=== PATIENT | female | born 1990 | race American Indian/Alaskan Native ===

== ENCOUNTER 2021-05-20 21:46 | Observation (INO) | payer OTHER ==
[2021-05-20] MEDS ORDERED: TERBUTALINE 1 MG/1 ML INJ ONE (22:30)
[2021-05-20] MEDS ORDERED: LACTATED RINGERS 1,000 ML ONE (22:30)
[2021-05-20] MEDS ORDERED: TERBUTALINE 1 MG/1 ML INJ SUB-Q ONE (22:42)
[2021-05-20] MEDS ORDERED: BETAMET ACET/BETAMET NA PH 6 MG/ML INJ 5 ML MDV IM ONE (23:06)
[2021-05-20] MEDS: BETAMET ACET/BETAMET NA PH 6 MG/ML INJ 5 ML MDV IM SCH (23:09)
[2021-05-20] MEDS ORDERED: LACTATED RINGERS 500 ML IV ONE (23:26)
[2021-05-20] MEDS ORDERED: MAGNESIUM SULFATE 40GM/1000ML 40 GM/1,000 ML BAG IV ONE (23:38)
--- NOTE | 2021-05-20 23:42 | Ultrasound Report ---
ULTRASOUND OBSTETRIC INDICATION / CLINICAL INFORMATION: wellbeing. Clinical Gestational Age (GA) in weeks, days: 25, 2 TECHNIQUE: Transabdominal. COMPARISON: None available. FINDINGS: Single intrauterine . Biparietal Diameter = 6.1 cm = 24, 4 weeks, days Head Circumference = 23.3 cm = 25, 2 weeks, days Abdominal Circumference = 20.4 cm = 25, 0 weeks, days Femur Length = 4.5 cm = 24, 5 weeks, days Average Ultrasound Age (AUA) = 24, 6 weeks, days Heart Rate: 143 beats per minute. Estimated Weight in grams (if calculated): 751 Estimated Weight Growth Percentile (if calculated): 25% Position: breech. Cervix: closed. Length in cm (if measured): 3.0 Placenta: posterior and free of the os. Amniotic Fluid Volume: normal Amniotic Fluid Index (MARIANELA) in cm (if calculated): 19.1. Maternal Adnexa: No significant abnormality. Uterus: Multiple uterine fibroids with the largest measuring 9.6 cm on the right. IMPRESSION: 1. Single, living intrauterine with estimated sonographic age of 25, 2 weeks, days. 2. No acute sonographic abnormality. 3. Multiple uterine fibroids. Signer Name: Chato Mcnair MD Signed: 05/20/2021 11:38 PM Workstation Name: [id number]
--- NOTE | 2021-05-20 23:45 | History and Physical Report ---
History of Present Illness Date of examination: 05/20/21 Date of admission: 05/20/21 Chief complaint: sent from clinic for eval with contractions in office today History of present illness: at 25.2wks by LMP c/w U/S and care at [facility]. Triage nurse called me from home stating pt with FHR in the 80-90's for which she was certain and pt was romy per nurse report. Brethine x1 dose ordered by me and u/s to verify fetus presentation, wt and well being. Steroids 1st dose ordered as well and walk in labs until prenatals available. When I arrived, I obtained history from patient. Pt here with report of being sent from clinic by SHANIQUE Gar earlier today for evaluation and pt chose to go and get her children situated prior to coming here. Pt admits to movement, denies leakage of fluid or vag bleeding, denies sexual intercourse, admits to feeling ctx and denies headache. When questioned, pt states that she and her family and moving to a different place of residence and she has been painting the [place] of her new residence. Past History Past Surgical History: appendectomy [employer] History: herpes, other (uterine fibroids this ) Family/Genetic History: none Social history: no significant social history - Obstetrical History Expected Date of Delivery: 08/31/21 Actual Gestation: 25 Week(s) 3 Day(s) : 3 Para: 2 Number of Living Children: 2 Medications and Allergies Allergies Allergy/AdvReac Type Severity Reaction Status Date / Time No Known Allergies Allergy Verified 08/15/13 08:43 Home Medications Medication Instructions Recorded Confirmed Last Taken Type Ibuprofen [Motrin] 800 mg PO TID PRN #21 tablet 09/26/13 Unknown Rx Active Meds: Active Medications Betamethasone Acet/Betameth SodPhos (Betamet Acet/Betamet Na Ph 6 Mg/Ml Inj 5 Ml Mdv) 12 mg IM Q24H PURA Stop: 05/21/21 23:18 Last Admin: 05/20/21 23:09 Dose: 12 mg Documented by: Lactated Ringer's (Lactated Ringers) 500 mls @ 999 mls/hr IV BOLUS ONE Stop: 05/20/21 23:56 Magnesium Sulfate (Magnesium Sulfate 40gm/1000ml) 40 gm in 1,000 mls @ 50 mls/hr IV ONCE ONE Stop: 05/21/21 19:37 Review of Systems All systems: negative (feeling contractions) - Vital Signs Vital signs: Vital Signs Pulse BP 96 H 137/90 05/20/21 22:25 05/20/21 22:25 Temp Pulse Resp BP Pulse Ox 96 H 137/90 97 05/20/21 23:37 05/20/21 22:25 05/20/21 23:37 - Physical Exam Breasts: Positive: deferred Cardiovascular: Regular rate Lungs: Positive: Normal air movement Abdomen: Positive: normal appearance Vulva: both: normal (no lesions seen) Uterus: Positive: enlarged (irregularly shaped enlarged uterus with fibroids) Anus/Rectum: Positive: normal perianal skin - Obstetrical FHR: other (Initially per nurse report fetus was in the 80's and U/S at bedside by radiology confirms 140's) Uterine Contraction Monitor Mode: External Cervical Dilatation: 0 (unchanged from clinic exam by CNMW) Cervical Effacement Percentage: 0 station: -3 Uterine Contraction Pattern: Irregular Results Result Diagrams: 05/20/21 22:40 All other labs normal. Assessment and Plan with contractions, multiple uterine fibroids largest 9.6cm on the right side with reassuring tracing after u/sound done. 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 Admit to antepartum floor, tocolysis and neuroprotection with mag sulfate, betamethasone 2. U/S today with EGA 24.6wks, fetus breech, wt 751g in the 25th percentile, posterior placenta, MARIANELA 19 3. Pt told if delivery imminent, emergent section would be recommended 4. NICU consult if delivery imminent 5. Consult [facility] in am Plan of care discussed; All questions encouraged and answered.
[2021-05-20] MEDS ORDERED: MAGNESIUM SULFATE 0 GM/0 ML BAG IV ONE (23:50)
[2021-05-20 23:55] LABS: Basophils # (Auto) 0.1 K/mm3 (0.0-0.1); Basophils % (Auto) 0.8 % (0.0-1.8); Eosinophils # (Auto) 0.2 K/mm3 (0.0-0.4); Eosinophils % (Auto) 1.5 % (0.0-4.3); Hematocrit 40.7 % (30.3-42.9); Hemoglobin 13.7 gm/dl (10.1-14.3); Lymphocytes # (Auto) 1.5 K/mm3 (1.2-5.4); Lymphocytes % (Auto) 15.3 % (13.4-35.0); Mean Corpuscular HGB Conc 34 % (30-34); Mean Corpuscular Volume 85 fl (79-97); Monocytes # (Auto) 0.7 K/mm3 (0.0-0.8); Monocytes % (Auto) 6.5 % (0.0-7.3); Platelet Count 176 K/mm3 (140-440); Red Cell Distribution Width 15.2 % (13.2-15.2)
[2021-05-21] MEDS ORDERED: LACTATED RINGERS 1,000 ML ONE ×2 (00:09→21:03)
[2021-05-21 00:56] LABS: Bilirubin,Urine NEG (Negative); Blood,Urine NEG (Negative); Color,Urine Straw (Yellow); Protein,Urine <15 mg/dL mg/dL (Negative); RBC,Urine < 1.0 /HPF (0.0-6.0); Urobilinogen,Urine < 2.0 mg/dL (<2.0); WBC,Urine < 1.0 /HPF (0.0-6.0)
[2021-05-21 01:03] LABS: Amphetamine Screen,Urine PRESUMPTIVE NEGATIVE; Benzodiazepines Screen,Urine PRESUMPTIVE NEGATIVE; Cannabinoid Screen,Urine PRESUMPTIVE NEGATIVE; Cocaine Screen,Urine PRESUMPTIVE NEGATIVE; Methadone Screen,Urine PRESUMPTIVE NEGATIVE; Opiate Screen,Urine PRESUMPTIVE NEGATIVE
[2021-05-21 02:53] LABS: Alanine Aminotransferase 8 units/L (7-56); Albumin 3.6 g/dL (3.9-5); Blood Urea Nitrogen 5 mg/dL (7-17); Hemolysis Index 2; Uric Acid 3.2 mg/dL (3.5-7.6)
[2021-05-21 02:58] LABS: BUN/Creatinine Ratio 17
[2021-05-21] MEDS ORDERED: ACETAMINOPHEN W/CODEINE 300-30 MG TAB PO PRN (03:41)
--- NOTE | 2021-05-21 03:41 | Event Note ---
Date: 05/21/21 pt resting comfortable with mag sulfate and not complaining of pain. pt refused the external contraction monitor per nurse report and FHR in the 150's tracing well. Urinary output good. Await [facility] consult later today.
[2021-05-21] MEDS ORDERED: LACTATED RINGERS 1,000 ML IV SCH (21:15)
[2021-05-21] MEDS ORDERED: MAGNESIUM SULFATE 40GM/1000ML 40 GM/1,000 ML BAG IV ONE (22:22)
[2021-05-21] MEDS: BETAMET ACET/BETAMET NA PH 6 MG/ML INJ 5 ML MDV IM SCH (23:10)
[2021-05-22 07:15] VITALS: BP 107/70
--- NOTE | 2021-05-22 09:23 | Discharge Summary ---
Providers - Providers Date of Admission: 05/20/21 23:26 Date of discharge: 05/20/21 Attending physician: DELIO SANDHU 05/20/21 23:26 Consult to Physician [CONS] Routine Comment: Consulting Provider: [facility] [place] Physician Instructions: Reason For Exam: labor, multiple fibroids Primary care physician: DELIO SANDHU Hospitalization Reason for admission: IUP - Discharge diagnosis: other (25 wks iup, pre-term labor) Hospital course: pt stopped u/cs on mag sulfate. she had steroids for lung maturity of baby. pt ready for d/c Condition at discharge: Good Disposition: DC-01 TO HOME OR SELFCARE - Discharge Diagnoses (1) 25 to 26 weeks gestation of Status: Acute (2) Fibroids Status: Acute (3) labor Status: Acute Qualifiers: labor delivery status: without delivery Plan - Provider Discharge Summary Activity: routine, no sex for 6 weeks, no heavy lifting 4 weeks, no strenuous exercise Diet: routine Instructions: routine Additional instructions: [] Smoking cessation referral if applicable(refer to patient education folder for contact #) [] Refer to [facility] Booklet Call your doctor immediately for: * Fever > 100.5 * Heavy vaginal bleeding ( >1 pad per hour) * Severe persistent headache * Shortness of breath * Reddened, hot, painful area to leg or breast * Drainage or odor from incision. * Keep incision clean and dry at all times and follow doctor's instructions regarding bathing/showering - Follow up plan Follow up: DELIO SANDHU MD [Primary Care Provider] - 7 Days
== END 2021-05-22 12:35 | disposition home or self-care (01) ==
LOC: TRG 21:46 → APU 21:55 → TRG 23:26 → LD 23:26
PROVIDERS: ADMIT Obstetrics & Gynecology; ATTEND Obstetrics & Gynecology
DX: O60.02 Preterm labor without delivery, second trimester (principal); D25.9 Leiomyoma of uterus, unspecified; Z79.899 Other long term (current) drug therapy; Z3A.25 25 weeks gestation of pregnancy; Z90.49 Acquired absence of other specified parts of digestive tract; Z98.890 Other specified postprocedural states
CPT/HCPCS: 36415; 76816; 80053; 80307; 81001; 83615; 83735; 84550; 85025; 86850; 86900; 86901; 87086; 96365; 96366; 96372; G0378; J0702; J3105; J3475; J7120; 76815

== ENCOUNTER 2021-09-07 19:39 | Inpatient (IN) | payer OTHER ==
[2021-09-07] MEDS ORDERED: LACTATED RINGERS 1,000 ML ONE (20:49)
[2021-09-07] MEDS ORDERED: CARBOPROST TROMETHAMINE 250 MCG/1 ML INJ IM PRN (22:16)
[2021-09-07] MEDS ORDERED: AMPICILLIN/NS 2 GM/100 ML 2 GM/100 ML BAG IV ONE (22:16)
[2021-09-07] MEDS ORDERED: DINOPROSTONE 10 MG VAG SUPP VG ONE (22:16)
[2021-09-07] MEDS ORDERED: miSOPROStol 200 MCG TAB PR PRN (22:16)
[2021-09-07] MEDS ORDERED: ePHEDrine SULFATE 50 MG/1 ML INJ IV PRN (22:16)
[2021-09-07] MEDS ORDERED: TERBUTALINE 1 MG/1 ML INJ SUB-Q PRN (22:16)
[2021-09-07] MEDS ORDERED: OXYTOCIN 10 UNIT/1 ML INJ IM PRN (22:16)
[2021-09-07] MEDS ORDERED: MINERAL OIL 30 ML ORAL LIQD PO PRN (22:16)
[2021-09-07] MEDS ORDERED: ACETAMINOPHEN 325 MG TAB PO PRN (22:16)
[2021-09-07] MEDS ORDERED: LOPERAMIDE 2 MG CAP PO PRN (22:16)
[2021-09-07] MEDS ORDERED: LIDOCAINE (2%) 20 MG/1 ML VIAL 20 ML MDV INFILTRATI ONE (22:16)
[2021-09-07] MEDS ORDERED: BUTORPHANOL 2 MG/1 ML INJ IV PRN ×2 (22:16)
[2021-09-07] MEDS ORDERED: METHYLERGONOVINE MALEATE 0.2 MG/ML VIAL IM PRN (22:16)
--- NOTE | 2021-09-07 22:16 | History and Physical Report ---
History of Present Illness Date of examination: 09/07/21 Date of admission: 09/07/21 19:39 Chief complaint: "I"m here for an induction" History of present illness: 31 y/o presents @ 41 wks for an IOL r/t postdates. Pt denies VB or LOF and admits to adq . Pt initiated her pnc @ [facility] @ 13 1/ wks. She was admitted to [facility] for PTL and had steroids on 05/20 and 05/21, otherwise her preg has been uneventful. She is pos for GBS and has a hx of HSV II and multiple uterine fibroids. Pt reports a surgical hx of an appendectomy. Family hx is unremarkable. She was admitted to L&D for a cervidil IOL. Past History Past Medical History: other (appendicitis, fibroids) Past Surgical History: appendectomy Family/Genetic History: none Social history: no significant social history, full code - Obstetrical History Expected Date of Delivery: 08/31/21 Actual Gestation: 41 Week(s) 0 Day(s) : 3 Para: 2 Hx # Term Pregnancies: 2 Number of Living Children: 2 Medications and Allergies Allergies Allergy/AdvReac Type Severity Reaction Status Date / Time No Known Allergies Allergy Verified 08/15/13 08:43 Home Medications Medication Instructions Recorded Confirmed Last Taken Type Ibuprofen [Motrin 800 MG tab] 800 mg PO TID PRN #21 tablet 09/26/13 05/22/21 Unknown Rx Review of Systems All systems: negative Eyes: deferred Ears, nose, mouth and throat: deferred Breasts: normal Genitourinary: normal appearance Rectal Exam: deferred - Vital Signs Vital signs: Vital Signs Pulse BP 112 H 120/86 09/07/21 19:58 09/07/21 19:58 Temp Pulse Resp BP Pulse Ox 98.9 F 112 H 18 120/86 09/07/21 21:10 09/07/21 21:10 09/07/21 21:10 09/07/21 21:10 - Physical Exam Breasts: Positive: normal Abdomen: Positive: normal appearance, soft, normal bowel sounds, other (gravid) Genitourinary (Female): Positive: normal external genitalia, normal perenium Vulva: both: normal Vagina: Positive: normal moisture Uterus: Positive: enlarged, normal contour, other (gravid) Adnexa: both: normal Anus/Rectum: Positive: normal perianal skin Extremities: Positive: normal - Obstetrical FHR: auscultation normal, category 1 Uterine Contraction Monitor Mode: External Cervical Dilatation: 0 Cervical Effacement Percentage: 0 station: -4 Uterine Contraction Pattern: Irregular Uterine Tone Measurement Phase: Resting Uterine Contraction Intensity: Mild Results All other labs normal. Assessment and Plan A: IUP@ 41 wks postdates Multiple fibroids GBS pos HSV II P: Admit to L&D for a cervidil IOL GBS protocal Pain med/Epidural prn Continuous monitoring Anticipate
[2021-09-07] MEDS ORDERED: OXYTOCIN DRIP 30 UNITS/500 ML BAG IV SCH ×2 (23:00)
[2021-09-08 00:24] LABS: Hematocrit 41.9 % (30.3-42.9); Hemoglobin 13.9 gm/dl (10.1-14.3); Mean Corpuscular HGB Conc 33 % (30-34); Mean Corpuscular Volume 85 fl (79-97); Platelet Count 206 K/mm3 (140-440); Red Blood Count 4.92 M/mm3 (3.65-5.03); Red Cell Distribution Width 15.3 % (13.2-15.2)
[2021-09-08] MEDS ORDERED: AMPICILLIN/NS 1 GM/50 ML 1 GM/50 ML BAG IV SCH (03:00)
--- NOTE | 2021-09-08 10:02 | Progress Note ---
Assessment and Plan A: IUP @ 41 Weeks Category I Tracing Fibroid Uterus GBS Positive P: Remove Cervidil Sack Meal Provided Start Pitocin Augmentation Continue GBS Prophylaxis Subjective - Subjective Date of service: 09/08/21 Patient reports: movement normal, other (Requesting to eat) Objective - Vital Signs Vital Signs: Vital Signs - 12hr 09/08/21 09/08/21 09/08/21 03:57 04:02 04:07 Pulse Rate 92 H 112 H 104 H Blood Pressure O2 Sat by Pulse 98 97 97 Oximetry O2 Sat by Pulse Oximetry [ Bilateral Throughout] 09/08/21 09/08/21 09/08/21 04:12 04:17 04:22 Pulse Rate 88 93 H 98 H Blood Pressure O2 Sat by Pulse 96 96 96 Oximetry O2 Sat by Pulse Oximetry [ Bilateral Throughout] 09/08/21 09/08/21 09/08/21 04:27 04:32 04:37 Pulse Rate 90 95 H 99 H Blood Pressure O2 Sat by Pulse 96 95 96 Oximetry O2 Sat by Pulse Oximetry [ Bilateral Throughout] 09/08/21 09/08/21 09/08/21 04:42 04:47 04:52 Pulse Rate 88 91 H 92 H Blood Pressure O2 Sat by Pulse 96 97 97 Oximetry O2 Sat by Pulse Oximetry [ Bilateral Throughout] 09/08/21 09/08/21 09/08/21 04:57 05:02 05:07 Pulse Rate 94 H 90 95 H Blood Pressure O2 Sat by Pulse 97 97 96 Oximetry O2 Sat by Pulse Oximetry [ Bilateral Throughout] 09/08/21 09/08/21 09/08/21 05:12 05:17 05:22 Pulse Rate 94 H 90 91 H Blood Pressure O2 Sat by Pulse 96 97 96 Oximetry O2 Sat by Pulse Oximetry [ Bilateral Throughout] 09/08/21 09/08/21 09/08/21 05:27 05:32 05:37 Pulse Rate 91 H 85 94 H Blood Pressure O2 Sat by Pulse 96 94 96 Oximetry O2 Sat by Pulse Oximetry [ Bilateral Throughout] 09/08/21 09/08/21 09/08/21 05:42 05:47 05:52 Pulse Rate 95 H 88 103 H Blood Pressure O2 Sat by Pulse 97 96 97 Oximetry O2 Sat by Pulse Oximetry [ Bilateral Throughout] 09/08/21 09/08/21 09/08/21 05:57 05:58 06:02 Pulse Rate 84 84 87 Blood Pressure O2 Sat by Pulse 96 94 94 Oximetry O2 Sat by Pulse Oximetry [ Bilateral Throughout] 09/08/21 09/08/21 09/08/21 06:07 06:12 06:17 Pulse Rate 93 H 82 90 Blood Pressure O2 Sat by Pulse 95 97 96 Oximetry O2 Sat by Pulse Oximetry [ Bilateral Throughout] 09/08/21 09/08/21 09/08/21 06:22 06:27 07:34 Pulse Rate 80 82 92 H Blood Pressure 122/83 O2 Sat by Pulse 96 97 Oximetry O2 Sat by Pulse Oximetry [ Bilateral Throughout] 09/08/21 09/08/21 09/08/21 07:35 07:40 07:45 Pulse Rate 89 87 87 Blood Pressure O2 Sat by Pulse 96 97 97 Oximetry O2 Sat by Pulse 98 Oximetry [ Bilateral Throughout] 09/08/21 09/08/21 09/08/21 07:50 07:55 08:00 Pulse Rate 86 85 82 Blood Pressure O2 Sat by Pulse 97 97 97 Oximetry O2 Sat by Pulse Oximetry [ Bilateral Throughout] 09/08/21 09/08/21 09/08/21 08:05 08:10 08:15 Pulse Rate 85 82 94 H Blood Pressure O2 Sat by Pulse 96 97 96 Oximetry O2 Sat by Pulse Oximetry [ Bilateral Throughout] 09/08/21 09/08/21 09/08/21 08:20 08:25 08:30 Pulse Rate 82 89 88 Blood Pressure O2 Sat by Pulse 94 95 96 Oximetry O2 Sat by Pulse Oximetry [ Bilateral Throughout] 09/08/21 09/08/21 09/08/21 08:35 08:40 08:45 Pulse Rate 85 95 H 86 Blood Pressure O2 Sat by Pulse 97 97 97 Oximetry O2 Sat by Pulse Oximetry [ Bilateral Throughout] 09/08/21 09/08/21 09/08/21 09:39 09:45 09:50 Pulse Rate 96 H 93 H Blood Pressure O2 Sat by Pulse 100 98 98 Oximetry O2 Sat by Pulse Oximetry [ Bilateral Throughout] 09/08/21 09:55 Pulse Rate 86 Blood Pressure O2 Sat by Pulse 98 Oximetry O2 Sat by Pulse Oximetry [ Bilateral Throughout] - Exam Breasts: normal Cardiovascular: Regular rate Lungs: Normal air movement Abdomen: Present: normal appearance, soft Uterus: Present: normal, firm, fundal height above umbilicus FHR: category 1 (decreased varability) Uterine Contraction Monitor Mode: External Cervical Dilatation: 3 (Intact; Vtx) Cervical Effacement Percentage: 50 station: -3 Uterine Contraction Pattern: Irregular Uterine Tone Measurement Phase: Resting Uterine Contraction Intensity: Mild Extremities: normal - Labs Labs: Abnormal Labs 09/07/21 20:11 RDW 15.3 H Laboratory Results - last 24 hr 09/07/21 09/07/21 20:11 20:11 WBC 7.0 RBC 4.92 Hgb 13.9 Hct 41.9 MCV 85 MCH 28 MCHC 33 RDW 15.3 H Plt Count 206 Blood Type O POSITIVE Antibody Screen Negative
[2021-09-08] MEDS ORDERED: AMPICILLIN/NS 2 GM/100 ML 2 GM/100 ML BAG IV ONE (11:30)
[2021-09-08] MEDS: LACTATED RINGERS 1,000 ML IV SCH ×2 (13:52→19:58)
--- NOTE | 2021-09-08 14:39 | Progress Note ---
Subjective - Subjective Date of service: 09/08/21 Interval history: AROM clear fluid FHT Category 1 [place]: Q2-3 minutes Oxytocin at 8mu/min plan for continue AOL Maternal/ well being reassuring overall. Jesenia Jacob MD Patient reports: movement normal, other (Requesting to eat) Objective - Vital Signs Vital Signs: Vital Signs - 12hr 09/08/21 09/08/21 09/08/21 03:57 04:02 04:07 Pulse Rate 92 H 112 H 104 H Blood Pressure O2 Sat by Pulse 98 97 97 Oximetry O2 Sat by Pulse Oximetry [ Bilateral Throughout] 09/08/21 09/08/21 09/08/21 04:12 04:17 04:22 Pulse Rate 88 93 H 98 H Blood Pressure O2 Sat by Pulse 96 96 96 Oximetry O2 Sat by Pulse Oximetry [ Bilateral Throughout] 09/08/21 09/08/21 09/08/21 04:27 04:32 04:37 Pulse Rate 90 95 H 99 H Blood Pressure O2 Sat by Pulse 96 95 96 Oximetry O2 Sat by Pulse Oximetry [ Bilateral Throughout] 09/08/21 09/08/21 09/08/21 04:42 04:47 04:52 Pulse Rate 88 91 H 92 H Blood Pressure O2 Sat by Pulse 96 97 97 Oximetry O2 Sat by Pulse Oximetry [ Bilateral Throughout] 09/08/21 09/08/21 09/08/21 04:57 05:02 05:07 Pulse Rate 94 H 90 95 H Blood Pressure O2 Sat by Pulse 97 97 96 Oximetry O2 Sat by Pulse Oximetry [ Bilateral Throughout] 09/08/21 09/08/21 09/08/21 05:12 05:17 05:22 Pulse Rate 94 H 90 91 H Blood Pressure O2 Sat by Pulse 96 97 96 Oximetry O2 Sat by Pulse Oximetry [ Bilateral Throughout] 09/08/21 09/08/21 09/08/21 05:27 05:32 05:37 Pulse Rate 91 H 85 94 H Blood Pressure O2 Sat by Pulse 96 94 96 Oximetry O2 Sat by Pulse Oximetry [ Bilateral Throughout] 09/08/21 09/08/21 09/08/21 05:42 05:47 05:52 Pulse Rate 95 H 88 103 H Blood Pressure O2 Sat by Pulse 97 96 97 Oximetry O2 Sat by Pulse Oximetry [ Bilateral Throughout] 09/08/21 09/08/2109/08/21 05:57 05:58 06:02 Pulse Rate 84 84 87 Blood Pressure O2 Sat by Pulse 96 94 94 Oximetry O2 Sat by Pulse Oximetry [ Bilateral Throughout] 09/08/21 09/08/21 09/08/21 06:07 06:12 06:17 Pulse Rate 93 H 82 90 Blood Pressure O2 Sat by Pulse 95 97 96 Oximetry O2 Sat by Pulse Oximetry [ Bilateral Throughout] 09/08/21 09/08/21 09/08/21 06:22 06:27 07:34 Pulse Rate 80 82 92 H Blood Pressure 122/83 O2 Sat by Pulse 96 97 Oximetry O2 Sat by Pulse Oximetry [ Bilateral Throughout] 09/08/21 09/08/21 09/08/21 07:35 07:40 07:45 Pulse Rate 89 87 87 Blood Pressure O2 Sat by Pulse 96 97 97 Oximetry O2 Sat by Pulse 98 Oximetry [ Bilateral Throughout] 09/08/21 09/08/21 09/08/21 07:50 07:55 08:00 Pulse Rate 86 85 82 Blood Pressure O2 Sat by Pulse 97 97 97 Oximetry O2 Sat by Pulse Oximetry [ Bilateral Throughout] 09/08/21 09/08/21 09/08/21 08:05 08:10 08:15 Pulse Rate 85 82 94 H Blood Pressure O2 Sat by Pulse 96 97 96 Oximetry O2 Sat by Pulse Oximetry [ Bilateral Throughout] 09/08/21 09/08/21 09/08/21 08:20 08:25 08:30 Pulse Rate 82 89 88 Blood Pressure O2 Sat by Pulse 94 95 96 Oximetry O2 Sat by Pulse Oximetry [ Bilateral Throughout] 09/08/21 09/08/21 09/08/21 08:35 08:40 08:45 Pulse Rate 85 95 H 86 Blood Pressure O2 Sat by Pulse 97 97 97 Oximetry O2 Sat by Pulse Oximetry [ Bilateral Throughout] 09/08/21 09/08/21 09/08/21 09:39 09:45 09:50 Pulse Rate 96 H 93 H Blood Pressure O2 Sat by Pulse 100 98 98 Oximetry O2 Sat by Pulse Oximetry [ Bilateral Throughout] 09/08/21 09/08/21 09/08/21 09:55 10:00 10:05 Pulse Rate 86 96 H 94 H Blood Pressure O2 Sat by Pulse 98 95 99 Oximetry O2 Sat by Pulse Oximetry [ Bilateral Throughout] 09/08/21 09/08/21 09/08/21 10:10 10:15 10:20 Pulse Rate 91 H 97 H 91 H Blood Pressure O2 Sat by Pulse 99 100 98 Oximetry O2 Sat by Pulse Oximetry [ Bilateral Throughout] 09/08/21 09/08/21 09/08/21 10:24 10:25 10:30 Pulse Rate 112 H 95 H 94 H Blood Pressure O2 Sat by Pulse 94 99 98 Oximetry O2 Sat by Pulse Oximetry [ Bilateral Throughout] 09/08/21 09/08/21 09/08/21 10:35 10:40 10:45 Pulse Rate 105 H 93 H 110 H Blood Pressure O2 Sat by Pulse 97 99 98 Oximetry O2 Sat by Pulse Oximetry [ Bilateral Throughout] 09/08/21 09/08/21 09/08/21 10:50 10:56 11:01 Pulse Rate 102 H 96 H 111 H Blood Pressure O2 Sat by Pulse 99 99 99 Oximetry O2 Sat by Pulse Oximetry [ Bilateral Throughout] 09/08/21 09/08/21 09/08/21 11:10 11:15 11:20 Pulse Rate 101 H 99 H 107 H Blood Pressure O2 Sat by Pulse 96 98 98 Oximetry O2 Sat by Pulse Oximetry [ Bilateral Throughout] 09/08/21 09/08/21 09/08/21 11:25 11:30 11:35 Pulse Rate 111 H 104 H 106 H Blood Pressure O2 Sat by Pulse 98 97 98 Oximetry O2 Sat by Pulse Oximetry [ Bilateral Throughout] 09/08/21 09/08/21 09/08/21 11:40 11:45 11:50 Pulse Rate 107 H 96 H 102 H Blood Pressure O2 Sat by Pulse 96 96 96 Oximetry O2 Sat by Pulse Oximetry [ Bilateral Throughout] 09/08/21 09/08/21 09/08/21 11:55 12:00 12:01 Pulse Rate 99 H 95 H 88 Blood Pressure 130/77 O2 Sat by Pulse 97 98 Oximetry O2 Sat by Pulse Oximetry [ Bilateral Throughout] 09/08/21 09/08/21 09/08/21 12:05 12:13 12:18 Pulse Rate 94 H 86 83 Blood Pressure O2 Sat by Pulse 97 96 97 Oximetry O2 Sat by Pulse Oximetry [ Bilateral Throughout] 09/08/21 09/08/21 09/08/21 12:23 12:28 12:30 Pulse Rate 84 87 89 Blood Pressure 121/69 O2 Sat by Pulse 97 97 92 Oximetry O2 Sat by Pulse Oximetry [ Bilateral Throughout] 09/08/21 09/08/21 09/08/21 12:33 12:38 12:43 Pulse Rate 94 H 87 84 Blood Pressure O2 Sat by Pulse 97 96 96 Oximetry O2 Sat by Pulse Oximetry [ Bilateral Throughout] 09/08/21 09/08/21 09/08/21 12:48 12:53 12:58 Pulse Rate 85 86 109 H Blood Pressure O2 Sat by Pulse 97 98 94 Oximetry O2 Sat by Pulse Oximetry [ Bilateral Throughout] 09/08/21 09/08/21 09/08/21 13:00 13:03 13:08 Pulse Rate 88 97 H 88 Blood Pressure 124/86 O2 Sat by Pulse 96 97 Oximetry O2 Sat by Pulse Oximetry [ Bilateral Throughout] 09/08/21 09/08/21 09/08/21 13:13 13:18 13:23 Pulse Rate 84 86 88 Blood Pressure O2 Sat by Pulse 98 98 98 Oximetry O2 Sat by Pulse Oximetry [ Bilateral Throughout] 09/08/21 09/08/21 09/08/21 13:28 13:30 13:33 Pulse Rate 87 82 85 Blood Pressure 127/78 O2 Sat by Pulse 98 95 Oximetry O2 Sat by Pulse Oximetry [ Bilateral Throughout] 09/08/21 09/08/21 09/08/21 13:38 13:43 13:55 Pulse Rate 86 86 81 Blood Pressure O2 Sat by Pulse 98 97 98 Oximetry O2 Sat by Pulse Oximetry [ Bilateral Throughout] 09/08/21 09/08/21 09/08/21 14:00 14:05 14:10 Pulse Rate 85 75 79 Blood Pressure 120/79 O2 Sat by Pulse 93 95 96 Oximetry O2 Sat by Pulse Oximetry [ Bilateral Throughout] 09/08/21 09/08/21 09/08/21 14:15 14:20 14:25 Pulse Rate 79 77 79 Blood Pressure O2 Sat by Pulse 97 96 96 Oximetry O2 Sat by Pulse Oximetry [ Bilateral Throughout] 09/08/21 09/08/21 14:30 14:35 Pulse Rate 86 86 Blood Pressure 108/71 O2 Sat by Pulse 95 97 Oximetry O2 Sat by Pulse Oximetry [ Bilateral Throughout] - Labs Labs: Abnormal Labs 09/07/21 20:11 RDW 15.3 H Laboratory Results - last 24 hr 09/07/21 09/07/21 20:11 20:11 WBC 7.0 RBC 4.92 Hgb 13.9 Hct 41.9 MCV 85 MCH 28 MCHC 33 RDW 15.3 H Plt Count 206 Blood Type O POSITIVE Antibody Screen Negative
[2021-09-08] MEDS: fentaNYL 100 MCG/2 ML INJ IV PRN ×2 (19:30→20:39)
[2021-09-08] MEDS ORDERED: LIDOCAINE (2%) 20 MG/1 ML VIAL 20 ML MDV INFILTRATI ONE (20:19)
[2021-09-08] MEDS ORDERED: miSOPROStol 200 MCG TAB ONE (21:14)
[2021-09-08] MEDS ORDERED: MAGNESIUM HYDROXIDE (MOM) ORAL LIQD UDC PO PRN (21:41)
[2021-09-08] MEDS ORDERED: diphenhydrAMINE 25 MG CAP PO PRN (21:41)
[2021-09-08] MEDS ORDERED: ONDANSETRON 4 MG/2 ML INJ IV PRN (21:41)
[2021-09-08] MEDS ORDERED: LANOLIN/ZINC/DIMETHICONE (LANSINOH) 7 GM TP PRN (21:41)
[2021-09-08] MEDS ORDERED: WITCH HAZEL/ GLYCERIN PAD TP PRN (21:41)
[2021-09-08] MEDS ORDERED: oxyCODONE /ACETAMINOPHEN 5-325MG TAB PO PRN (21:41)
[2021-09-08] MEDS ORDERED: DOCUSATE SODIUM 100 MG CAP PO PRN (21:41)
[2021-09-08] MEDS ORDERED: PROMETHAZINE 25 MG RECT SUPP PR PRN (21:41)
[2021-09-08] MEDS ORDERED: PROMETHAZINE 25 MG TAB PO PRN (21:41)
--- NOTE | 2021-09-08 21:41 | Procedure Note ---
OB Delivery Note - Delivery Date of Delivery: 09/08/21 Surgeon: DELIO SANDHU Estimated blood loss: 300cc - Vaginal Delivery presentation: vertex Delivery position: OA Intrapartum events: other(please specify) (multiple uterine fibroids, retained placenta post delivery) Delivery induction: AROM Delivery augmentation: pitocin Delivery monitor: external FHT, external uterine Route of delivery: Delivery placenta: manual, adherent Delivery cord: 3 umbilical vessels Episiotomy: midline Delivery laceration: 2nd degree Delivery repair: chromic Anesthesia: local Delivery comments: SAVD of viable male with pt screaming and moving up in the bed. Local anesthetic used while pt and lidocaine 1% used for pain relief, mid- line episiotomy done without extension. Baby delivered and placenta retained; Manual removal done with pt getting IV fentanyl 100mcg. Placenta observed and appears complete. Will send to pathology and cytotec 1000mcg given per rectum. Episiotomy repair done prior to placental delivery with 2-0 chromic running locked suture and laceration to left labia minora repaired with 2-0 chromic subcutaneously; both with excellent hemostasis and pt comfortable. Baby also doing well. - A at 1 minute: 8 at 5 minutes: 9 Gender: Male (wt 3570g.)
[2021-09-08] MEDS ORDERED: miSOPROStol 200 MCG TAB PR ONE (22:00)
[2021-09-09] MEDS: FERROUS SULFATE 325 MG TAB PO SCH ×3 (02:12→23:15)
[2021-09-09] MEDS: IBUPROFEN 600 MG TAB PO SCH ×4 (02:12→23:15)
--- NOTE | 2021-09-09 05:56 | Progress Note ---
Assessment and Plan PPD#1 with manual removal of placenta and multiple large fibroids 1. For ultrasound later this morning to ensure no retained products 2. Routine care All questions encouraged and answered Subjective Date of service: 09/09/21 Principal diagnosis: PPD#1 with multiple large uterine fibroids Interval history: Pt has no complaints. Pt was asleep and easily aroused. Pt plans to breast feed. Pt states her vag bleed like a period. Pt has tolerated diet. Objective - Constitutional Vitals: Vital Signs - 12hr 09/08/21 09/08/21 09/08/21 17:53 17:57 18:00 Temperature Pulse Rate 83 82 81 Respiratory Rate Blood Pressure 132/78 Blood Pressure [Left] O2 Sat by Pulse 94 95 Oximetry O2 Sat by Pulse Oximetry [ Bilateral Throughout] 09/08/21 09/08/21 09/08/21 18:01 18:02 18:06 Temperature Pulse Rate 85 93 H 89 Respiratory Rate Blood Pressure Blood Pressure [Left] O2 Sat by Pulse 94 96 94 Oximetry O2 Sat by Pulse Oximetry [ Bilateral Throughout] 09/08/21 09/08/21 09/08/21 18:07 18:12 18:13 Temperature Pulse Rate 86 83 92 H Respiratory Rate Blood Pressure Blood Pressure [Left] O2 Sat by Pulse 95 95 94 Oximetry O2 Sat by Pulse Oximetry [ Bilateral Throughout] 09/08/21 09/08/21 09/08/21 18:17 18:20 18:22 Temperature Pulse Rate 87 88 86 Respiratory Rate Blood Pressure Blood Pressure [Left] O2 Sat by Pulse 97 94 95 Oximetry O2 Sat by Pulse Oximetry [ Bilateral Throughout] 09/08/21 09/08/21 09/08/21 18:27 18:30 18:32 Temperature Pulse Rate 85 82 83 Respiratory Rate Blood Pressure 122/63 Blood Pressure [Left] O2 Sat by Pulse 97 96 Oximetry O2 Sat by Pulse Oximetry [ Bilateral Throughout] 09/08/21 09/08/21 09/08/21 18:37 18:42 18:47 Temperature Pulse Rate 95 H 88 83 Respiratory Rate Blood Pressure Blood Pressure [Left] O2 Sat by Pulse 96 97 96 Oximetry O2 Sat by Pulse Oximetry [ Bilateral Throughout] 09/08/21 09/08/21 09/08/21 18:49 18:52 18:56 Temperature Pulse Rate 94 H 85 75 Respiratory Rate Blood Pressure Blood Pressure [Left] O2 Sat by Pulse 94 95 94 Oximetry O2 Sat by Pulse Oximetry [ Bilateral Throughout] 09/08/21 09/08/21 09/08/21 18:57 19:00 19:02 Temperature Pulse Rate 90 80 88 Respiratory Rate Blood Pressure 113/68 Blood Pressure [Left] O2 Sat by Pulse 95 97 Oximetry O2 Sat by Pulse Oximetry [ Bilateral Throughout] 09/08/21 09/08/21 09/08/21 19:07 19:12 19:17 Temperature Pulse Rate 88 95 H 91 H Respiratory Rate Blood Pressure Blood Pressure [Left] O2 Sat by Pulse 97 99 96 Oximetry O2 Sat by Pulse Oximetry [ Bilateral Throughout] 09/08/21 09/08/21 09/08/21 19:22 19:23 19:26 Temperature 97.8 F Pulse Rate 98 H 96 H 94 H Respiratory 20 Rate Blood Pressure Blood Pressure [Left] O2 Sat by Pulse 96 94 98 Oximetry O2 Sat by Pulse Oximetry [ Bilateral Throughout] 09/08/21 09/08/21 09/08/21 19:27 19:30 19:32 Temperature Pulse Rate 93 H 90 89 Respiratory 20 Rate Blood Pressure 135/93 Blood Pressure [Left] O2 Sat by Pulse 98 97 Oximetry O2 Sat by Pulse Oximetry [ Bilateral Throughout] 09/08/21 09/08/21 09/08/21 19:34 19:36 19:37 Temperature Pulse Rate 86 86 93 H Respiratory Rate Blood Pressure 165/83 Blood Pressure [Left] O2 Sat by Pulse 92 94 Oximetry O2 Sat by Pulse 97 Oximetry [ Bilateral Throughout] 09/08/21 09/08/21 09/08/21 19:42 19:43 19:48 Temperature Pulse Rate 88 93 H 96 H Respiratory Rate Blood Pressure Blood Pressure [Left] O2 Sat by Pulse 93 96 99 Oximetry O2 Sat by Pulse Oximetry [ Bilateral Throughout] 09/08/21 09/08/21 09/08/21 19:53 19:55 19:58 Temperature Pulse Rate 86 91 H 103 H Respiratory Rate Blood Pressure Blood Pressure [Left] O2 Sat by Pulse 96 93 98 Oximetry O2 Sat by Pulse Oximetry [ Bilateral Throughout] 09/08/21 09/08/21 09/08/21 19:59 20:00 20:04 Temperature Pulse Rate 91 H 91 H 92 H Respiratory Rate Blood Pressure 147/83 Blood Pressure [Left] O2 Sat by Pulse 94 98 Oximetry O2 Sat by Pulse Oximetry [ Bilateral Throughout] 09/08/21 09/08/21 09/08/21 20:06 20:09 20:14 Temperature Pulse Rate 83 89 95 H Respiratory Rate Blood Pressure Blood Pressure [Left] O2 Sat by Pulse 92 96 97 Oximetry O2 Sat by Pulse Oximetry [ Bilateral Throughout] 09/08/21 09/08/21 09/08/21 20:17 20:19 20:24 Temperature Pulse Rate 86 91 H 93 H Respiratory Rate Blood Pressure Blood Pressure [Left] O2 Sat by Pulse 92 95 92 Oximetry O2 Sat by Pulse Oximetry [ Bilateral Throughout] 09/08/21 09/08/21 09/08/21 20:29 20:31 20:34 Temperature Pulse Rate 110 H 118 H 103 H Respiratory Rate Blood Pressure 212/110 Blood Pressure [Left] O2 Sat by Pulse 98 97 Oximetry O2 Sat by Pulse Oximetry [ Bilateral Throughout] 09/08/21 09/08/21 09/08/21 20:38 20:39 20:40 Temperature Pulse Rate 96 H 96 H 98 H Respiratory Rate Blood Pressure 124/75 Blood Pressure [Left] O2 Sat by Pulse 97 94 Oximetry O2 Sat by Pulse Oximetry [ Bilateral Throughout] 09/08/21 09/08/21 09/08/21 20:42 20:44 20:45 Temperature Pulse Rate 93 H 93 H 93 H Respiratory Rate Blood Pressure 133/76 Blood Pressure [Left] O2 Sat by Pulse 95 94 Oximetry O2 Sat by Pulse Oximetry [ Bilateral Throughout] 09/08/21 09/08/21 09/08/21 20:49 20:52 20:54 Temperature Pulse Rate 95 H 94 H 99 H Respiratory Rate Blood Pressure Blood Pressure [Left] O2 Sat by Pulse 96 94 96 Oximetry O2 Sat by Pulse Oximetry [ Bilateral Throughout] 09/08/21 09/08/21 09/08/21 20:57 20:59 21:00 Temperature 98.3 F Pulse Rate 88 92 H Respiratory Rate Blood Pressure 132/76 Blood Pressure [Left] O2 Sat by Pulse 98 Oximetry O2 Sat by Pulse Oximetry [ Bilateral Throughout] 09/08/21 09/08/21 09/08/21 21:01 21:04 21:08 Temperature Pulse Rate 98 H 83 70 Respiratory Rate Blood Pressure Blood Pressure [Left] O2 Sat by Pulse 94 97 80 L Oximetry O2 Sat by Pulse Oximetry [ Bilateral Throughout] 09/08/21 09/08/21 09/08/21 21:09 21:12 21:14 Temperature Pulse Rate 79 96 H 103 H Respiratory Rate Blood Pressure 132/71 Blood Pressure [Left] O2 Sat by Pulse 73 L 97 Oximetry O2 Sat by Pulse Oximetry [ Bilateral Throughout] 09/08/21 09/08/21 09/08/21 21:19 21:24 21:27 Temperature Pulse Rate 91 H 91 H 100 H Respiratory Rate Blood Pressure 140/78 Blood Pressure [Left] O2 Sat by Pulse 95 97 Oximetry O2 Sat by Pulse Oximetry [ Bilateral Throughout] 09/08/21 09/08/21 09/08/21 21:29 21:33 21:36 Temperature Pulse Rate 89 39 L 103 H Respiratory Rate Blood Pressure Blood Pressure [Left] O2 Sat by Pulse 98 88 98 Oximetry O2 Sat by Pulse Oximetry [ Bilateral Throughout] 09/08/21 09/08/21 09/08/21 21:37 21:39 21:41 Temperature Pulse Rate 86 103 H Respiratory 18 Rate Blood Pressure 129/75 Blood Pressure [Left] O2 Sat by Pulse 97 Oximetry O2 Sat by Pulse Oximetry [ Bilateral Throughout] 09/08/21 09/08/21 09/08/21 21:42 21:46 21:50 Temperature Pulse Rate 106 H 92 H 99 H Respiratory Rate Blood Pressure 126/72 Blood Pressure [Left] O2 Sat by Pulse 98 94 Oximetry O2 Sat by Pulse Oximetry [ Bilateral Throughout] 09/08/21 09/08/21 09/08/21 21:51 21:56 22:01 Temperature Pulse Rate 103 H 90 89 Respiratory Rate Blood Pressure Blood Pressure [Left] O2 Sat by Pulse 95 98 98 Oximetry O2 Sat by Pulse Oximetry [ Bilateral Throughout] 09/08/21 09/08/21 09/08/21 22:06 22:11 22:12 Temperature Pulse Rate 95 H 96 H 92 H Respiratory Rate Blood Pressure 137/88 Blood Pressure [Left] O2 Sat by Pulse 98 97 Oximetry O2 Sat by Pulse Oximetry [ Bilateral Throughout] 09/08/21 09/08/21 09/08/21 22:16 22:21 22:26 Temperature Pulse Rate 95 H 87 87 Respiratory Rate Blood Pressure 138/92 Blood Pressure [Left] O2 Sat by Pulse 98 98 96 Oximetry O2 Sat by Pulse Oximetry [ Bilateral Throughout] 09/08/21 09/08/21 09/08/21 22:31 22:35 22:36 Temperature Pulse Rate 89 92 H 88 Respiratory Rate Blood Pressure Blood Pressure [Left] O2 Sat by Pulse 97 90 98 Oximetry O2 Sat by Pulse Oximetry [ Bilateral Throughout] 09/08/21 09/08/21 09/08/21 22:41 22:42 22:46 Temperature Pulse Rate 89 88 105 H Respiratory Rate Blood Pressure 132/93 Blood Pressure [Left] O2 Sat by Pulse 99 98 Oximetry O2 Sat by Pulse Oximetry [ Bilateral Throughout] 09/08/21 09/08/21 09/08/21 22:51 22:56 22:57 Temperature Pulse Rate 111 H 102 H 108 H Respiratory Rate Blood Pressure 173/85 Blood Pressure [Left] O2 Sat by Pulse 97 97 Oximetry O2 Sat by Pulse Oximetry [ Bilateral Throughout] 09/08/21 09/08/21 09/08/21 23:01 23:06 23:11 Temperature Pulse Rate 108 H 95 H 93 H Respiratory Rate Blood Pressure Blood Pressure [Left] O2 Sat by Pulse 98 98 99 Oximetry O2 Sat by Pulse Oximetry [ Bilateral Throughout] 09/08/21 09/08/21 09/09/21 23:16 23:21 00:08 Temperature Pulse Rate 93 H 101 H 95 H Respiratory Rate Blood Pressure 140/82 Blood Pressure [Left] O2 Sat by Pulse 99 98 Oximetry O2 Sat by Pulse Oximetry [ Bilateral Throughout] 09/09/21 09/09/21 09/09/21 02:06 02:12 05:09 Temperature 99 F 97.8 F Pulse Rate 87 Respiratory 20 20 20 Rate Blood Pressure 117/80 Blood Pressure 134/88 [Left] O2 Sat by Pulse 100 95 Oximetry O2 Sat by Pulse 100 Oximetry [ Bilateral Throughout] General appearance: Present: no acute distress - Cardiovascular Rhythm: regular Extremities: No edema - Gastrointestinal General gastrointestinal: Present: soft, non-tender - Genitourinary Female genitourinary: other (Uterus 2cm above the umbilicus where one of the fibroids located. No tenderness; Lochia moderate without clots) - Neurologic Neurologic: moves all extremities - Labs CBC & Chem 7: 09/07/21 20:11 Medications & Allergies - Medications Allergies/Adverse Reactions: Allergies No Known Allergies Allergy (Verified 08/15/13 08:43) Home Medications: Home Medications Medication Instructions Recorded Confirmed Last Taken Type Ibuprofen [Motrin 800 MG tab] 800 mg PO TID PRN #21 tablet 09/26/13 09/09/21 Unknown Rx Active Medications: Generic Name Dose Route Start Last Admin Trade Name Joseq PRN Reason Stop Dose Admin Acetaminophen 650 mg 09/07/21 22:16 Acetaminophen 325 Mg Tab PO Q4H PRN Pain, Mild (1-3) Bisacodyl 10 mg 09/08/21 21:41 Bisacodyl 10 Mg Rect Supp [place] BID PRN Constipation Butorphanol Tartrate 2 mg 09/07/21 22:16 09/08/21 17:37 Butorphanol 2 Mg/1 Ml Inj IV 2 mg Q2H PRN Administration Pain , Severe (7-10) Butorphanol Tartrate 1 mg 09/07/21 22:16 Butorphanol 2 Mg/1 Ml Inj IV Q2H PRN Pain, Moderate(4-6) LABOR PAIN Carboprost Tromethamine 250 mcg 09/07/21 22:16 Carboprost Tromethamine 250 Mcg/1 Ml Inj IM ONCE PRN Uterine Bleeding Diphenhydramine HCl 25 mg 09/08/21 21:41 Diphenhydramine 25 Mg Cap PO Q6H PRN Itching Docusate Sodium 100 mg 09/08/21 21:41 Docusate Sodium 100 Mg Cap PO BID PRN Constipation Ephedrine Sulfate 10 mg 09/07/21 22:16 Ephedrine Sulfate 50 Mg/1 Ml Inj IV Q2M PRN Hypotension Fentanyl 100 mcg 09/07/21 22:16 09/08/21 20:39 Fentanyl 100 Mcg/2 Ml Inj IV 100 mcg Q2H PRN Administration Pain,Severe (7-10) LABOR PAIN Ferrous Sulfate 325 mg 09/08/21 22:00 09/09/21 02:12 Ferrous Sulfate 325 Mg Tab PO 325 mg BID PURA Administration Oxytocin/Sodium Chloride 30 units in 500 mls @ 2 mls/hr 09/07/21 23:00 09/08/21 21:15 Pitocin/Ns 30 Unit/500ml IV 165 mls/hr TITR PURA 165 mls/hr Titration Protocol Lactated Ringer's 1,000 mls @ 125 mls/hr 09/07/21 22:30 09/08/21 19:58 Lactated Ringers IV 999 mls/hr DIRECT PURA Administration Oxytocin/Sodium Chloride 30 units in 500 mls @ 40 mls/hr 09/07/21 23:00 09/08/21 22:10 Pitocin/Ns 30 Unit/500ml IV 40 mls/hr TITR PURA 40 mls/hr Administration Protocol Ampicillin Sodium 1 gm in 50 mls @ 100 mls/hr 09/08/21 03:00 09/08/21 18:50 Ampicillin/Ns 1 Gm/50 Ml IV 100 mls/hr Q4H PURA Administration Protocol Ibuprofen 600 mg 09/08/21 22:00 09/09/21 02:12 Ibuprofen 600 Mg Tab PO 600 mg Q6HR PURA Administration Loperamide HCl 2 mg 09/07/21 22:16 Loperamide 2 Mg Cap PO ONCE PRN give with Hemabate Magnesium Hydroxide 30 ml 09/08/21 21:41 Magnesium Hydroxide (Mom) Oral Liqd Udc PO HS PRN Constipation Methylergonovine Maleate 0.2 mg 09/07/21 22:16 Methylergonovine Maleate 0.2 Mg/Ml Vial IM ONCE PRN Uterine Bleeding Mineral Oil 30 ml 09/07/21 22:16 09/08/21 20:25 Mineral Oil 30 Ml Oral Liqd PO 30 ml QHS PRN Administration Constipation Misoprostol 800 mcg 09/07/21 22:16 Misoprostol 200 Mcg Tab [place] ONCE PRN Uterine Bleeding Multi-Ingredient Ointment 1 applic 09/08/21 21:41 Lanolin/Zinc/Dimethicone (Lansinoh) 7 Gm TP PRN PRN Sore Nipples Multivitamins/Iron/Calcium 1 each 09/09/21 10:00 Mlb50-Oz Fumarate-Folic Acid Vit Tab PO QDAY PURA Ondansetron HCl 4 mg 09/08/21 21:41 Ondansetron 4 Mg/2 Ml Inj IV Q8H PRN Nausea And Vomiting Oxycodone/Acetaminophen 2 tab 09/08/21 21:41 Oxycodone /Acetaminophen 5-325mg Tab PO Q6H PRN Pain, Moderate (4-6) Oxytocin 10 unit 09/07/21 22:16 Oxytocin 10 Unit/1 Ml Inj IM ONCE PRN Uterine Bleeding Promethazine HCl 25 mg 09/08/21 21:41 Promethazine 25 Mg Rect Supp W[place] Q6H PRN Nausea And Vomiting Promethazine HCl 25 mg 09/08/21 21:41 Promethazine 25 Mg Tab PO Q6H PRN Nausea And Vomiting Sodium Chloride 10 ml 09/08/21 22:00 Sodium Chloride 0.9% 10 Ml Flush Syringe IV PRN PRN LINE FLUSH Terbutaline Sulfate 0.25 mg 09/07/21 22:16 Terbutaline 1 Mg/1 Ml Inj SUB-Q ONCE PRN Hyperstimulation/Hypertonicity Witch Meenu/Glycerin 1 each 09/08/21 21:41 09/09/21 02:11 Witch Meenu/ Glycerin Pad TP 1 each PRN PRN Administration Hemorrhoid/cleansing/soothing
[2021-09-09] MEDS: PRENATAL VIT27-FE FUMARATE-FOLIC ACID VIT TAB PO SCH (10:45)
--- NOTE | 2021-09-09 11:17 | Ultrasound Report ---
Pelvic ultrasound limited INDICATION: Pelvic pain with recent delivery IMPRESSION: Endometrial thickness is 1.8 cm no significant increased Doppler flow along the endometri al stripe is appreciated. Several fibroids are noted within the uterus measuring up to 9 cm in diamet er. Signer Name: Jabier Mott MD Signed: 09/09/2021 11:13 AM Workstation Name: [id number]
[2021-09-09 14:07] LABS: Hematocrit 36.8 % (30.3-42.9); Hemoglobin 11.9 gm/dl (10.1-14.3)
--- NOTE | 2021-09-10 03:53 | Discharge Summary ---
Providers - Providers Date of Admission: 09/07/21 19:39 Date of discharge: 09/10/21 Attending physician: TRIXIE BAZAN JR, MD Primary care physician: TRIXIE BAZAN JR, MD Hospitalization Delivery: Laceration: 2nd degree complications: retained placenta (manual removal of retained placenta, uterine fibroids) Discharge diagnosis: IUP at term delivered Condition at discharge: Stable Disposition: 01 HOME / SELF CARE / HOMELESS Plan - Provider Discharge Summary Activity: no sex for 6 weeks Diet: routine Additional instructions: [] Smoking cessation referral if applicable(refer to patient education folder for contact #) [] Refer to [facility] Call your doctor immediately for: * Fever > 100.5 * Heavy vaginal bleeding ( >1 pad per hour) * Severe persistent headache * Shortness of breath * Reddened, hot, painful area to leg or breast * Drainage or odor from incision. * Keep incision clean and dry at all times and follow doctor's instructions regarding bathing/showering - Follow up plan Follow up: TRIXIE BAZAN JR, MD [Primary Care Provider] - 6 Weeks
[2021-09-10] MEDS: IBUPROFEN 600 MG TAB PO SCH ×2 (05:56→11:53)
[2021-09-10] MEDS: FERROUS SULFATE 325 MG TAB PO SCH (11:53)
[2021-09-10] MEDS: PRENATAL VIT27-FE FUMARATE-FOLIC ACID VIT TAB PO SCH (11:53)
[2021-09-10 16:41] VITALS: BP 103/66
== END 2021-09-10 17:00 | disposition home or self-care (01) | DRG 806 ==
LOC: LD 19:39 → OB 09-09 01:49
PROVIDERS: ADMIT Obstetrics & Gynecology; ATTEND Obstetrics & Gynecology
PROC: 10907ZC Drainage of Amniotic Fluid, Therapeutic from Products of Conception, Via Natural or Artificial Opening (ICD-10-PCS; principal; 2021-09-08)
PROC: 10E0XZZ Delivery of Products of Conception, External Approach (ICD-10-PCS; 2021-09-08)
PROC: 0KQM0ZZ Repair Perineum Muscle, Open Approach (ICD-10-PCS; 2021-09-08)
PROC: 0W8NXZZ Division of Female Perineum, External Approach (ICD-10-PCS; 2021-09-08)
DX: O99.824 Streptococcus B carrier state complicating childbirth (principal); O98.52 Other viral diseases complicating childbirth; Z37.0 Single live birth; Z3A.41 41 weeks gestation of pregnancy; B00.9 Herpesviral infection, unspecified; O34.13 Maternal care for benign tumor of corpus uteri, third trimester; O70.1 Second degree perineal laceration during delivery; O72.0 Third-stage hemorrhage; Z20.822 Contact with and (suspected) exposure to COVID-19
CPT/HCPCS: 36415; 59200; 76857; 85014; 85018; 85027; 86850; 86900; 86901; 88307; G0378; J3490; J0290; J0595; J0690; J2590; J3010; J7120; U0003